=== PATIENT | female | born 1955 | race Two or more races ===

== ENCOUNTER → 2017-09-09 | Outpatient (CLI) | payer OTHER | LOC: RAD 17:10 | PROVIDERS: ATTEND Family Medicine | DX: Z02.9 Encounter for administrative examinations, unspecified (principal) ==

== ENCOUNTER → 2017-09-10 | Outpatient (CLI) | payer OTHER | END | disposition home or self-care (01) | LOC: RAD 16:18 | PROVIDERS: ATTEND Family Medicine | DX: N28.1 Cyst of kidney, acquired (principal); K62.5 Hemorrhage of anus and rectum | CPT/HCPCS: 74177 ==